=== PATIENT | female | born 1995 | race Caucasian/White ===

== ENCOUNTER 2020-12-19 21:57 | Observation (INO) | payer OTHER, SELFPAY ==
[2020-12-19] VITALS (7 sets, daily range): BP systolic 107–119; BP diastolic 65–73; PULSE 78–91
[2020-12-19 23:24] LABS: Add Urine Microscopic? YES; Appearance Urine Cloudy (Clear); Bacteria Urine Trace /hpf; Bilirubin Urine Negative (Negative); Blood Urine Negative (Negative); Color Urine Yellow (Yellow); Glucose Urine UA Negative (Negative); Ketones Urine Negative (Negative); Leukocyte Esterase Ur 3+ LEU/UL (Negative); Mucus Urine Rare /lpf; Nitrate Urine Negative (Negative); Protein Urine Negative (Negative); RBC Urine 0-2 /hpf (0-2); Specific Grav Ur 1.012 (1.001-1.035); Squamous Epithelial Cell Urine Moderate /hpf (Few)
--- NOTE | 2020-12-19 23:32 | OBADM ---
This patient, Anna Erickson, admitted to the OB room Labor/Delivery/Recovery 107 for observation. Patient/family oriented to hospital policies and general routines including ID bracelet, bed and alarms, visiting hours, pain management, procedures, bathroom and other care routines, personal items, smoking policy, room service/diet, and visiting hours. Patient/Family are encouraged to report perceived risks to care and to ask questions if they do not understand what they are told or what they should do.
[2020-12-20 00:01] VITALS: BP 107/72; PULSE 97
--- NOTE | 2020-12-24 10:34 | P.PNOB_ITS ---
OB - Triage/Final Diagnosis Visit Information Comments/Additional reasons for admission: I have assessed the risk for this patient, Anna Erickson, and determined that she would benefit from observation care. Evaluation Laboratory results: Laboratory Tests 12/19/20 23:05 Urine Color Yellow Urine Appearance Cloudy H Urine pH 6.0 Ur Specific [place] 1.012 Urine Protein Negative Urine Glucose (UA) Negative Urine Ketones Negative Ur Blood (Man) Negative Urine Nitrate Negative Urine Bilirubin Negative Urine Urobilinogen 2.0 H Leukocyte Esterase Rfl 3+ H Urine RBC 0-2 Urine WBC 4-6 H Ur Squamous Epith Cells Moderate H Urine Bacteria Trace Urine Mucus Rare Final Diagnosis (1) contractions: Code(s): O47.00 - False labor before 37 completed weeks of gestation, unspecified trimester Status: Acute
== END 2020-12-20 00:25 | disposition home or self-care (01) ==
PROVIDERS: Admitting Provider Obstetrics & Gynecology; Visit Provider Obstetrics & Gynecology
DX: O47.1 False labor at or after 37 completed weeks of gestation (principal); Z3A.37 37 weeks gestation of pregnancy
CPT/HCPCS: 81001; G0378; G0379

== ENCOUNTER 2020-12-25 17:55 | Observation (INO) | payer OTHER, SELFPAY ==
[2020-12-25 16:40] VITALS: BP 126/75; PULSE 108
[2020-12-25 16:45] VITALS: BP 129/77; PULSE 114
[2020-12-25 17:00] VITALS: BP 115/65; PULSE 105
[2020-12-25 17:15] VITALS: BP 109/66; PULSE 95
[2020-12-25 17:31] VITALS: BP 101/67; PULSE 95
[2020-12-25 17:46] VITALS: BP 90/69; PULSE 90
[2020-12-25 19:14] LABS: Amphetamine Screen Urine Negative (Negative); Barbiturate Screen Urine Negative (Negative); Benzodiazepines Screen Urine Negative (Negative); Cannabinoid Screen Urine Negative (Negative); Cocaine Screen Urine Negative (Negative); Methadone Screen Urine Negative (Negative); Opiate Screen Urine Negative (Negative); Phencyclidine Screen Urine Negative (Negative)
--- NOTE | 2021-01-02 09:27 | PM.OBTRLD ---
OB - Triage/Final Diagnosis Visit Information Comments/Additional reasons for admission: I have assessed the risk for this patient, Anna Erickson, and determined that she would benefit from observation care. Evaluation Laboratory results: Laboratory Tests 12/25/20 17:56 Urine Opiates Screen Negative Urine Methadone Screen Negative Ur Barbiturates Screen Negative Ur Phencyclidine Scrn Negative Ur Amphetamine Screen Negative U Benzodiazepines Scrn Negative Urine Cocaine Screen Negative U Cannabinoids Screen Negative Final Diagnosis (1) False labor: Code(s): O47.9 - False labor, unspecified Status: Acute
== END 2020-12-25 18:22 | disposition home or self-care (01) ==
LOC: ANHOBOP 18:14 → ANHLDR 18:14
PROVIDERS: Admitting Provider Obstetrics & Gynecology; Visit Provider Obstetrics & Gynecology
DX: O47.9 False labor, unspecified (principal); Z3A.00 Weeks of gestation of pregnancy not specified
CPT/HCPCS: 80307; 84112; G0378; G0379

== ENCOUNTER 2021-01-04 15:18 | Observation (INO) | payer OTHER, SELFPAY ==
[2021-01-04 15:36] VITALS: BMI 34.2
--- NOTE | 2021-01-04 16:22 | OBADM ---
This patient, Anna Erickson, admitted to the OB room Labor/Delivery/Recovery 107 for observation. Patient oriented to hospital policies and general routines including ID bracelet, bed and alarms, visiting hours, pain management, procedures, bathroom and other care routines, personal items, smoking policy, room service/diet, call light, and visiting hours. Patient is encouraged to report perceived risks to care and to ask questions if she does not understand what she is told or what she should do.
[2021-01-04 17:11] LABS: Basophils Percent Auto 0.5 % (0.2-1.2); Eosinophils Percent Auto 0.2 % (0-4.4); Hematocrit 28.7 % (37.0-47.0); Hemoglobin 8.7 g/dL (12.0-15.0); Immature Granulocyte Absolute 0.04 K/mm3 (0.00-0.031); Immature Granulocyte Percent A 0.5 % (0-0.5); Lymphocytes Absolute Auto 1.63 K/mm3 (0.9-3.2); Lymphocytes Percent Auto 19.7 % (18.3-44.2); Mean Corpuscular HGB Conc 30.3 g/dl (32-36); Mean Corpuscular Hemoglobin 22.8 pg (26-34); Mean Corpuscular Volume 75.3 fl (80-100); Mean Platelet Volume 9.5 fl (7.4-10.4); Monocytes Absolute Auto 0.5 K/mm3 (0.1-0.6); Monocytes Percent Auto 5.8 % (2.6-8.5); Neutrophils Absolute Auto 6.1 K/mm3 (1.3-6.7); Neutrophils Percent Auto 73.3 % (45.5-73.1); Platelet Count Result 268 k/mm3 (150-375); Red Blood Count 3.81 M/mm3 (4.2-5.4); Red Cell Distribution Width 16.3 % (11.5-14.5); White Blood Count 8.3 K/mm3 (4.5-10.0)
[2021-01-04 18:06] LABS: Hepatitis B Surface Antigen Negative (Negative); Rubella IgG Antibody 18.5 IU/ML
[2021-01-04 18:11] LABS: HIV 1/2 Ab P24 Ag Result Negative (Negative)
[2021-01-05 11:41] LABS: Rapid Plasma Reagin Non-Reactive (NonReactive)
--- NOTE | 2021-01-25 23:41 | PM.OBTRLD ---
OB - Triage/Final Diagnosis Visit Information Comments/Additional reasons for admission: I have assessed the risk for this patient, Anna Erickson, and determined that she would benefit from observation care. Evaluation Laboratory results: Laboratory Tests 01/04/21 01/04/21 01/04/21 17:01 17:01 17:01 WBC 8.3 RBC 3.81 L Hgb 8.7 L Hct 28.7 L MCV 75.3 L MCH 22.8 L MCHC 30.3 L RDW 16.3 H Plt Count 268 MPV 9.5 Immature Gran % (Auto) 0.5 Neut % (Auto) 73.3 H Lymph % (Auto) 19.7 [place] % (Auto) 5.8 Eos % (Auto) 0.2 Baso % (Auto) 0.5 Lymph # (Auto) 1.63 [place] # (Auto) 0.5 Eos # (Auto) 0.0 Baso # (Auto) 0.0 Abs Immat Gran (auto) 0.04 H Absolute Neuts (auto) 6.1 Absolute Nucleated RBC 0.0 Nucleated RBC % 0.0 RPR Non-reactive Hep Bs Antigen Negative HIV 1&2 Ab/P24 Ag 4thGn Rubella IgG Antibody 18.5 Blood Type Antibody Screen 01/04/21 01/04/21 17:01 17:01 WBC RBC Hgb Hct MCV MCH MCHC RDW Plt Count MPV Immature Gran % (Auto) Neut % (Auto) Lymph % (Auto) [place] % (Auto) Eos % (Auto) Baso % (Auto) Lymph # (Auto) [place] # (Auto) Eos # (Auto) Baso # (Auto) Abs Immat Gran (auto) Absolute Neuts (auto) Absolute Nucleated RBC Nucleated RBC % RPR Hep Bs Antigen HIV 1&2 Ab/P24 Ag 4thGn Negative Rubella IgG Antibody Blood Type AB Positive Antibody Screen Negative Final Diagnosis (1) False labor: Code(s): O47.9 - False labor, unspecified Status: Acute
== END 2021-01-04 18:10 | disposition home or self-care (01) ==
PROVIDERS: Admitting Provider Obstetrics & Gynecology; Visit Provider Obstetrics & Gynecology
DX: O47.1 False labor at or after 37 completed weeks of gestation (principal); Z3A.39 39 weeks gestation of pregnancy
CPT/HCPCS: 36415; 84112; 85025; 86592; 86703; 86762; 86850; 86900; 86901; 87340; G0378; G0379; G0432

== ENCOUNTER 2021-01-07 04:20 | Inpatient (IN) | payer OTHER, MEDICAID, SELFPAY ==
[2021-01-07] VITALS (105 sets, daily range): BP systolic 71–120; BP diastolic 31–96; PULSE 48–124; RESP 16–20; TEMP 36.2–36.8; O2SAT 82–100; BMI 35.5
[2021-01-07 05:12] LABS: Basophils Percent Auto 0.5 % (0.2-1.2); Eosinophils Absolute Auto 0.1 K/mm3 (0-0.3); Eosinophils Percent Auto 0.8 % (0-4.4); Hematocrit 28.8 % (37.0-47.0); Hemoglobin 8.7 g/dL (12.0-15.0); Immature Granulocyte Absolute 0.02 K/mm3 (0.00-0.031); Immature Granulocyte Percent A 0.3 % (0-0.5); Lymphocytes Absolute Auto 1.78 K/mm3 (0.9-3.2); Lymphocytes Percent Auto 26.8 % (18.3-44.2); Mean Corpuscular HGB Conc 30.2 g/dl (32-36); Mean Corpuscular Hemoglobin 22.8 pg (26-34); Mean Corpuscular Volume 75.4 fl (80-100); Monocytes Absolute Auto 0.4 K/mm3 (0.1-0.6); Monocytes Percent Auto 6.6 % (2.6-8.5); Neutrophils Absolute Auto 4.3 K/mm3 (1.3-6.7); Platelet Count Result 284 k/mm3 (150-375); Red Blood Count 3.82 M/mm3 (4.2-5.4); Red Cell Distribution Width 16.6 % (11.5-14.5); White Blood Count 6.6 K/mm3 (4.5-10.0)
[2021-01-07] MEDS: OXYTOCIN 30 UNITS/NS 500 ML 30 UNITS/500 ML BAG IV CONT (05:17)
[2021-01-07] MEDS: LACTATED RINGERS 1,000 ML 125 ML IV CONT ×3 (05:17→09:17)
[2021-01-07] MEDS: AMPICILLIN 2 GM/NS 100 ML 2 GM/100 ML BAG IVPB (05:17)
--- NOTE | 2021-01-07 06:18 | LDADM ---
This patient, Anna Erickson, was admitted to Labor/Delivery/Recovery 106 on 01/07/21 at 04:20. Plans for labor, pain management and were discussed with patient. Patient/family oriented to hospital policies and general routines including ID bracelet, bed and alarms, visiting hours, pain management, procedures, bathroom and other care routines, personal items, smoking policy, room service/diet and guest tray routines, infant security routines, and visiting hours. Patient/Family are encouraged to report perceived risks to care and to ask questions if they do not understand what they are told or what they should do. See OBIX for further documentation.
[2021-01-07] MEDS: AMPICILLIN 1 GM/NS 50 ML 1 GM/50 ML BAG IVPB (09:16)
[2021-01-07 09:34] LABS: Rapid Plasma Reagin Non-Reactive (NonReactive)
--- NOTE | 2021-01-07 10:05 | WPDANESEPPF ---
Anes - Initial Pre Proc Eval Date/Time: 01/07/21 10:05 Surgeon: Tam Jimenez MD Pre Op Diagnosis: IOL Patient Data Age: 25 Gender: F Height: 1.63 m Weight: 94 kg Last Vital Signs Temp 36.3 C L 01/07/21 10:00 Pulse 99 01/07/21 10:01 Resp 18 01/07/21 10:00 BP 95/51 L 01/07/21 10:01 Pulse Ox 97 01/07/21 10:05 Allergies Allergy/AdvReac Type Severity Reaction Status Date / Time Sulfa (Sulfonamide Allergy Hives Verified 01/04/21 17:21 Antibiotics) sulfamethoxazole Allergy Hives Verified 01/04/21 17:21 [From ] trimethoprim [From ] Allergy Hives Verified 01/04/21 17:21 Home Medications Medication Instructions Recorded Confirmed Type without [id number] 800 tablet PO DAILY 12/19/20 01/07/21 History Laboratory Tests 01/07/21 01/07/21 04:48 04:48 WBC 6.6 K/mm3 K/mm3 (4.5-10.0) RBC 3.82 M/mm3 L M/mm3 (4.2-5.4) Hgb 8.7 g/dL L g/dL (12.0-15.0) Hct 28.8 % L % (37.0-47.0) MCV 75.4 fl L fl (80-100) MCH 22.8 pg L pg (26-34) MCHC 30.2 g/dl L g/dl (32-36) RDW 16.6 % H % (11.5-14.5) Plt Count 284 k/mm3 k/mm3 (150-375) MPV 10.0 fl fl (7.4-10.4) Immature Gran % (Auto) 0.3 % % (0-0.5) Neut % (Auto) 65.0 % % (45.5-73.1) Lymph % (Auto) 26.8 % % (18.3-44.2) [place] % (Auto) 6.6 % % (2.6-8.5) Eos % (Auto) 0.8 % % (0-4.4) Baso % (Auto) 0.5 % % (0.2-1.2) Lymph # (Auto) 1.78 K/mm3 K/mm3 (0.9-3.2) [place] # (Auto) 0.4 K/mm3 K/mm3 (0.1-0.6) Eos # (Auto) 0.1 K/mm3 K/mm3 (0-0.3) Baso # (Auto) 0.0 K/mm3 K/mm3 (0.0-0.1) Abs Immat Gran (auto) 0.02 K/mm3 K/mm3 (0.00-0.031) Absolute Neuts (auto) 4.3 K/mm3 K/mm3 (1.3-6.7) Absolute Nucleated RBC 0.0 K/mm3 K/mm3 (0.0-0.012) Nucleated RBC % 0.0 % % (0.0-0.2) RPR Non-reactive (NonReactive) Patient hx anesthesia problems: none Family hx anesthesia problems: none Results Review: All pre-operative results and documents have been reviewed as part of the pre-operative evaluation. [facility] Past Medical History Medical History False labor contractions Family History Family History Mother Diabetes mellitus Social History Social History Smoking status: Never smoker Second hand tobacco smoke exposure: No Substance use: never Spiritual care concerns: No Anes - Eval Final PreProcedure Day of Procedure 01/07/21 10:05 Patient weight: obese Neurological: alert and oriented ASA classification: II Emergent: no Anesthetic plan: proceed Anesthesia type and monitoring: regional epidural and standard monitoring Results Review: All pre-operative results and documents have been reviewed as part of the pre-operative evaluation. Informed Consent: The patient's anesthetic plan and its attendant risks and benefits were discussed with the patient/family/POA. Questions were solicited and answers provided to the satisfaction of the patient/family/POA.
--- NOTE | 2021-01-07 11:59 | P.PCNOB_ITS ---
OB - Delivery Note Procedure Delivery date: 01/07/21 Procedure: events: Labor Induction (Arom Pitocin) Intrapartal events: None Induction method: none, AROM and per pitocin protocol Delivery monitor: external FHT and external uterine Route of delivery: Laceration Description: None Delivery repair: vicryl Specimen: Yes Quantitative Blood Loss (ml): 50 Anesthesia type: Epidural Disposition: floor [place] Baby Date of : 01/07/21 Time of : 11:45 Weeks of gestation at delivery: 39 gender: Female Weight (pounds): 7 Weight (ounces): 3 presentation: vertex Placenta delivery description: Spontaneous cord vessel description: 3 Vessels and Clamped/Cut score one minute: 8 score five minutes: 8 Narrative: Paged to patient bedside at 1142 told baby wast complete and +1 station. Fetus delivered at 11:45 arrival at 1147 to bedside.
[2021-01-07] MEDS: OXYTOCIN 30 UNITS/NS 500 ML 30 UNITS/500 ML BAG 125 UNITS IV CONT (12:26)
--- NOTE | 2021-01-07 14:57 | PC.NURSE ---
Patient transferred to post room #282 via wheelchair. Support person present. Oriented to unit, room, information board, rooming in, admission packet and security measures. Patient verbalizes understanding.
[2021-01-07] MEDS: DOCUSATE SODIUM 100 MG CAPSULE PO (17:22)
[2021-01-07] MEDS: POLYSACCHARIDE IRON COMPLEX 150 MG CAPSULE PO (17:22)
[2021-01-07] MEDS: IBUPROFEN 600 MG TABLET PO (21:20)
[2021-01-08] MEDS: IBUPROFEN 600 MG TABLET PO ×2 (04:29→10:43)
[2021-01-08 04:30] VITALS: BP 102/69; PULSE 85; RESP 20; TEMP 36.8
[2021-01-08 06:14] LABS: Hematocrit 28.1 % (37.0-47.0); Hemoglobin 8.6 g/dL (12.0-15.0)
[2021-01-08 07:55] VITALS: BP 107/65; PULSE 72; RESP 16; TEMP 36.4; O2SAT 100
[2021-01-08] MEDS: DOCUSATE SODIUM 100 MG CAPSULE PO (10:43)
[2021-01-08] MEDS: POLYSACCHARIDE IRON COMPLEX 150 MG CAPSULE PO (10:43)
[2021-01-08] MEDS: TETANUS,DIPHTHERIA,AC PERTUSSIS ADULT (0.5 ML) BOOSTRIX IM (12:41)
--- NOTE | 2021-01-08 12:48 | WPDANLDPN2 ---
Anes-Prog Note L&D Date/Time: 01/08/21 12:48 Comfortable throughout: labor and delivery Neuraxial method: epidural Epidural/Spinal procedure site: clean & non-tender Neuro status: Neuro function grossly intact. Cardiovascular status: normal Respiratory status: normal Airway patency: baseline Mental status: baseline Post-Op hydration status: normal Vital Signs: Last Vital Signs Temp 36.4 C 01/08/21 07:55 Pulse 72 01/08/21 07:55 Resp 16 01/08/21 07:55 BP 107/65 01/08/21 07:55 Pulse Ox 100 01/08/21 07:55 Pain score (VAS): 03/16 Post-procedural complaints: none Patient feedback: Patient satisfied with anesthetic care.
--- NOTE | 2021-01-08 14:02 | PM.OBPNVD ---
OB - PN: Subj Subjective Date/time seen: 01/08/21 14:02 doing well no complaints desires home OB - PN: Obj Data Labs CBC & Chem 7: 01/08/21 04:25 Labs: Laboratory Results - last 24 hr 01/08/21 04:25 Hgb 8.6 L Hct 28.1 L OB - PN A/P Assessment and Plan (1) (normal spontaneous vaginal delivery): Code(s): O80 - Encounter for full-term uncomplicated delivery Status: Acute Assessment and Plan: d/c home with loestrin 03/26 f/u 6 weeks Time Spent With Patient Time: Total time spent is greater than 50% in coordination of care (as documented) at patient's floor/unit and/or counseling patient: Exam Narrative: ff below umbilicus
--- NOTE | 2021-01-25 23:43 | P.DS_ITS ---
DS: Admitting Diagnosis Discharge Date 01/08/21 Admitting Diagnosis induction of labor OB - DS: Summary OB Procedures : Ultrasound OB Procedures Intrapartum: Spontaneous Vag Delivery OB Procedures: : None Time Spent with Patient Time attestation: Total time spent providing and/or coordinating discharge services: Discharge Plan Discharge Attending physician on discharge: Tam Jimenez Consulting providers: Costa Greene Discharging Clinician: Tam Jimenez Patient Disposition: Home, Self-Care Activity: may shower Diet: regular Discharge Instructions: Education: Mom and Baby Guide Given to: Mother Follow-Up: Call your delivering provider's office for an appointment to be seen. Mom and baby should come to the [facility] for the follow-up appointment. Appointment Date/Time: January 09, 2021 at 10:00 am What to expect at your follow-up visit: Physical Assessment Call [phone] if you are unable to keep your appointment time. BREAST CARE: * Wear a snug supportive bra. * For engorgement discomfort: Bottle Feeding: * May apply ice packs PERINEAL CARE: * Until bleeding stops, use your edgard bottle after urinating * Change your pad frequently throughout the day * You may take sitz baths several times a day (fill your bathtub with warm water and soak for 20 minutes.) Do NOT bathe in the water * No tub baths until seen by your physician - You may shower ACTIVITY: * Rest as much as possible. * Do not exercise or lift anything heavier than your baby (such as laundry or other children.) * Avoid stairs or driving as much as possible. * Do not put anything into the vagina. No douching, tampons, or sexual activity until seen by physician. NOTIFY PHYSICIAN IF YOU HAVE ANY QUESTIONS OR IF ANY OF THE FOLLOWING SYMPTOMS OCCUR: * If your perineum becomes red, swollen, or more painful than what you have experienced in the hospital. * If your vaginal bleeding becomes foul smelling. * If your vaginal bleeding becomes more heavy than a period or if your bleeding changes from pink to bright red. However, you may pass an occasional walnut- sized clot once or twice for the first week . * If you experience a sharp, shooting pain in you calves. * If you discover a hard, reddened area on your breast or if you experience flu- like symptoms. DIET: * Eat regular, well-balanced meals. * Drink plenty of fluids daily. Patient Instructions: Antibiotic Form Stand Alone Forms: General Discharge Information Follow-up/Referrals: Tam Jimenez MD [Physician] - Call for Appointment Discharge Medications: New norethindrone ac-eth estradiol [03/26 (21)] 1-20 mg-mcg tablet 1 tablet PO DAILY Qty: 21 RF: 6 Continued without [id number] 30-800 mg-mcg Tablet 800 tablet PO DAILY RF: 0 Date of admission: 01/07/21 04:20 Primary Care Provider: PHYSICIAN,DERMATOLOGIST AND DERMATOPATHOLOGIST Admitting Provider: Tam Jimenez Attending physician on admission: Tam Jimenez Condition: Stable
== END 2021-01-08 14:57 | disposition home or self-care (01) | DRG 807 ==
LOC: ANHLDR 04:52 → ANHOB2 15:02
PROVIDERS: Admitting Provider Obstetrics & Gynecology; Visit Provider Obstetrics & Gynecology
DX: O80 Encounter for full-term uncomplicated delivery (principal); Z37.0 Single live birth; Z3A.39 39 weeks gestation of pregnancy; Z23 Encounter for immunization
CPT/HCPCS: 36415; 85014; 85018; 85025; 86592; 90471; 90653; 90715; A9270; G0008; J0290; J2590; J7120